=== PATIENT | male | born 1935 | race Caucasian/White ===

== ENCOUNTER 2020-04-06 02:00 | Observation (INO) | payer MEDICARE, BC ==
[2020-04-06] MEDS ORDERED: Sodium Chloride 0.9% 10 ML Syringe FLUSH PRN ×2 (02:30→03:09)
--- NOTE | 2020-04-06 02:58 | EDM.PDOC ---
ED HPI GENERAL MEDICAL PROBLEM - General Chief Complaint: General Stated Complaint: chest pain Time Seen by Provider: 04/06/20 02:30 Source of Information: Reports: Patient History Limitations: Reports: No Limitations - History of Present Illness INITIAL COMMENTS - FREE TEXT/NARRATIVE: Patient is an 85-year-old gentleman who presents to the emergency department this morning via EMS with a complaint of chest pain. Patient states that the discomfort began approximately 1800 yesterday, this occurred while he was driving his tractor. Rest of the evening He was relaxing at home area Pain has been constant and gradually worsening. Patient decided to call 911 at 130 this morning. In route, EMS gave one nitroglycerin, 4 baby aspirin, and 2 mg of morphine. Chest pain was said to have completely resolved prior to presentation in ER. Patient denies any trauma, fever, shortness of breath, nausea, vomiting, diarrhea, abdominal pain, out of country travel, recent upper respiratory symptoms, lower extremity edema, or similar symptoms previously Onset: Sudden Onset Date: 04/05/20 Onset Time: 18:00 Duration: Hour(s):, Constant Location: Reports: Chest Quality: Reports: Ache Severity: Mild Improves with: Reports: Medication Worsens with: Reports: None Context: Denies: Activity, Exercise, Lifting, Trauma Associated Symptoms: Reports: No Other Symptoms. 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 Right Middle Chest Pain Score (Numeric/FACES): 4 - Related Data Allergies Allergy/AdvReac Type Severity Reaction Status Date / Time No Known Drug Allergies Allergy none Verified 04/06/20 02:32 Home Meds: Home Meds Allopurinol [Zyloprim] 100 mg PO BID 06/24/16 [History] Omeprazole 20 mg PO DAILY PRN 06/24/16 [History] Aspirin [Halfprin] 81 mg PO DAILY tab.ec 06/27/16 [Rx] Sildenafil Citrate [Sildenafil] 20 mg PO ASDIRECTED PRN 09/15/16 [History] Past Medical History HEENT History: Reports: Allergic Rhinitis, Cataract, Impaired Vision Cardiovascular History: Reports: Heart Murmur, Hypertension Respiratory History: Reports: COPD, SOB Gastrointestinal History: Reports: GERD Genitourinary History: Reports: Other (See Below) Other Genitourinary History: ED Musculoskeletal History: Reports: Arthritis, Gout, Osteoarthritis Endocrine/Metabolic History: Reports: None - Infectious Disease History Infectious Disease History: Reports: Chicken Pox, Measles, Mumps - Past Surgical History HEENT Surgical History: Reports: None, Cataract Surgery Musculoskeletal Surgical History: Reports: Arthroscopic Knee, Knee Replacement, Shoulder Replacement, Shoulder Surgery Social & Family History - Family History Family Medical History: Noncontributory - Caffeine Use Caffeine Use: Reports: Coffee ED ROS GENERAL - Review of Systems Review Of Systems: Comprehensive ROS is negative, except as noted in HPI. Constitutional: Reports: No Symptoms HEENT: Reports: No Symptoms Respiratory: Reports: No Symptoms Cardiovascular: Reports: Chest Pain Endocrine: Reports: No Symptoms GI/Abdominal: Reports: No Symptoms : Reports: No Symptoms Musculoskeletal: Reports: No Symptoms Skin: Reports: No Symptoms Neurological: Reports: No Symptoms Psychiatric: Reports: No Symptoms Hematologic/Lymphatic: Reports: No Symptoms Immunologic: Reports: No Symptoms ED EXAM, GENERAL - Physical Exam Exam: See Below Exam Limited By: No Limitations General Appearance: Alert, WD/WN, No Apparent Distress Nose: Normal Inspection, Normal Mucosa, No Blood Throat/Mouth: Normal Inspection, Normal Oropharynx, No Airway Compromise Head: Atraumatic, Normocephalic Neck: Normal Inspection, Supple, Non-Tender, Full Range of Motion Respiratory/Chest: No Respiratory Distress, Lungs Clear, Normal Breath Sounds, No Accessory Muscle Use, Chest Non-Tender Cardiovascular: Regular Rate, Rhythm, Systolic Murmur GI/Abdominal: Normal Bowel Sounds, Soft, Non-Tender, No Organomegaly, No Distention, No Abnormal Bruit, No Mass Back Exam: Normal Inspection. No: CVA Tenderness (L), CVA Tenderness (R) Extremities: Normal Inspection, No Pedal Edema Neurological: Alert, Oriented, Normal Cognition Psychiatric: Normal Affect, Normal Mood Skin Exam: Warm, Dry, Intact, Normal Color, No Rash Lymphatic: No Adenopathy EKG INTERPRETATION EKG Date: 04/06/20 Time: 02:25 Rhythm: Other (Sinus rhythm with first-degree AV block) Rate (Beats/Min): 69 [place]: Normal P-Wave: Present QRS: Normal ST-T: Normal QT: Normal Comparison: No Change (From previous on 10/04/2019) Course - Vital Signs Last Recorded V/S: Last Vital Signs Temp 99.5 F 04/06/20 02:33 Pulse 72 04/06/20 02:33 Resp 21 H 04/06/20 02:33 BP 93/35 L 04/06/20 02:33 Pulse Ox 92 L 04/06/20 02:33 - Orders/Labs/Meds Orders: Active Orders 24 hr Category Date Time Status EKG Documentation Completion [RC] ASDIRECTED Care 04/06/20 02:28 Active Peripheral IV Care [RC] . DIRECTED Care 04/06/20 02:30 Ordered CXR [Chest 1V Frontal] [CR] Stat Exams 04/06/20 02:29 Ordered Sodium Chloride 0.9% [Saline Flush] Med 04/06/20 02:30 Ordered 10 ml FLUSH Q8HR PRN Peripheral IV Insertion Adult [OM.PC] Routine Oth 04/06/20 02:30 Ordered EKG 12 Lead [EK] Stat Ther 04/06/20 02:25 Ordered Medication Orders Sodium Chloride (Saline Flush) 10 ml FLUSH Q8HR PRN PRN Reason: keep vein open Labs: Laboratory Tests 04/06/20 04/06/20 Range/Units 01:30 01:30 WBC 16.31 H (5.00-10.00) 10^3/uL RBC 4.86 (4.50-6.00) 10^6/uL Hgb 14.5 (13.0-17.0) g/dL Hct 44.5 (40.0-52.0) % MCV 91.6 (82.0-92.0) fL MCH 29.8 (27.0-31.0) pg MCHC 32.6 (32.0-36.0) g/dL RDW 14.4 (11.5-14.5) % Plt Count 209 (150-400) 10^3/uL MPV 12.1 H (7.4-10.4) fL Immature Gran % (Auto) 0.2 (0.0-5.0) % Neut % (Auto) 86.1 H (50.0-70.0) % Lymph % (Auto) 4.5 L (20.0-40.0) % [place] % (Auto) 9.0 H (2.0-8.0) % Eos % (Auto) 0.0 L (1.0-3.0) % Baso % (Auto) 0.2 (0.0-1.0) % Neut # (Auto) 14.03 H (2.50-7.00) 10^3/uL Lymph # (Auto) 0.74 L (1.00-4.00) 10^3/uL [place] # (Auto) 1.47 H (0.10-0.80) 10^3/uL Eos # (Auto) 0.00 L (0.10-0.30) 10^3/uL Baso # (Auto) 0.03 (0.00-0.10) 10^3/uL Immature Gran # (Auto) 0.04 (0.00-0.50) 10^3/uL Sodium 136 (136-145) mmol/L Potassium 4.3 (3.3-5.3) mmol/L Chloride 99 (98-115) mmol/L Carbon Dioxide 26.2 (21.0-32.0) mmol/L Anion Gap 15.1 H (5-15) mmol/L BUN 15 (6-25) mg/dL Creatinine 0.87 (0.51-1.17) mg/dL Est Cr Clr Drug Dosing 68.14 mL/min Estimated GFR (MDRD) > 60 mL/min Glucose 163 H (75 - 99) mg/dL Calcium 8.9 (8.7-10.3) mg/dL Total Bilirubin 1.0 (0.2-1.0) mg/dL AST 20 (15-37) U/L ALT 22 (12-78) U/L Alkaline Phosphatase 76 (46-116) IU/L Troponin I 0.06 (0.00-0.070) ng/mL Total Protein 7.8 (6.4-8.2) g/dL Albumin 3.66 (3.00-4.80) g/dL Lipase 41 L (73-393) U/L Meds: Medications Generic Name Dose Route Start Last Admin Trade Name Freq PRN Reason Stop Dose Admin Sodium Chloride 10 ml 04/06/20 02:30 Saline Flush FLUSH Q8HR PRN keep vein open - Radiology Interpretation Free Text/Narrative:: Chest x-ray shows no acute cardiopulmonary process - Re-Assessments/Exams Free Text/Narrative Re-Assessment/Exam: 04/06/20 03:08 Patient afebrile, vital signs stable, nontoxic appearing, chest pain, resolved. Patient does have an elevated white count of 16. No source. Patient was given nitroglycerin on EMS transport that resolved symptoms. Patient will be admitted for observation to Dr. Hernandes's service Departure - Departure Time of Disposition: 03:12 Disposition: Refer to Observation Condition: Fair Clinical Impression: Chest pain Qualifiers: Chest pain type: unspecified Qualified Code(s): R07.9 - Chest pain, unspecified - Discharge Information Referrals: Erinn Fernandez PA-C [Primary Care Provider] - Forms: ED Department Discharge Sepsis Event Note - Evaluation Sepsis Screening Result: No Definite Risk - Focused Exam Vital Signs: Vital Signs Temp Pulse Resp BP Pulse Ox 04/06/20 02:33 99.5 F 72 21 H 93/35 L 92 L Date Exam was Performed: 04/06/20 Time Exam was Performed: 03:07 - My Orders Last 24 Hours: My Active Orders 04/06/20 02:25 EKG 12 Lead [EK] Stat 04/06/20 02:28 EKG Documentation Completion [RC] ASDIRECTED 04/06/20 02:29 CXR [Chest 1V Frontal] [CR] Stat 04/06/20 02:30 Peripheral IV Care [RC] . DIRECTED Sodium Chloride 0.9% [Saline Flush] 10 ml FLUSH Q8HR PRN Peripheral IV Insertion Adult [OM.PC] Routine - Assessment/Plan Admission H&P: Please use this note as an admission H&P Last 24 Hours: My Active Orders 04/06/20 02:25 EKG 12 Lead [EK] Stat 04/06/20 02:28 EKG Documentation Completion [RC] ASDIRECTED 04/06/20 02:29 CXR [Chest 1V Frontal] [CR] Stat 04/06/20 02:30 Peripheral IV Care [RC] . DIRECTED Sodium Chloride 0.9% [Saline Flush] 10 ml FLUSH Q8HR PRN Peripheral IV Insertion Adult [OM.PC] Routine Assessment:: Chest pain Plan: Admitted for observation
[2020-04-06] MEDS ORDERED: Lidocaine 2% 100 MG/5 ML Syringe IVPUSH PRN (03:00)
[2020-04-06] MEDS ORDERED: EPINEPHrine 1:10,000 1 MG/10 ML Syringe IVPUSH PRN (03:00)
[2020-04-06] MEDS ORDERED: Atropine 0.1 MG/ML 10 ML Syringe IVPUSH PRN (03:00)
[2020-04-06] MEDS ORDERED: Nitroglycerin 0.4 MG Tab.SL SL PRN (03:00)
[2020-04-06 03:04] LABS: ANION GAP 15.1 mmol/L (5-15); CHLORIDE,CL 99 mmol/L (98-115); SODIUM,NA 136 mmol/L (136-145)
[2020-04-06] MEDS ORDERED: Acetaminophen 325 MG Tab PO PRN (03:09)
--- NOTE | 2020-04-06 07:29 | CR ---
[id number] RAD/RAD Chest PA or AP 1V EXAM: SINGLE VIEW CHEST. INDICATION: CHEST PAIN COMPARISON: CORRELATION IS MADE WITH OCTOBER 04, 2019 FINDINGS: The lungs are clear The cardiomediastinal contour is stable IMPRESSION: NO PNEUMONIA OR EDEMA Rafael Noriega MD 04/06/20 0728 Thank you for allowing us to participate in the care of your patient.
[2020-04-06 09:27] LABS: ANION GAP 13.3 mmol/L (5-15); CHLORIDE,CL 101 mmol/L (98-115); SODIUM,NA 136 mmol/L (136-145)
[2020-04-06 10:53] VITALS: BP 100/52; PULSE 74
--- NOTE | 2020-04-09 20:17 | DISCH ---
DISCHARGE DIAGNOSIS: 1. Chest pain, myocardial infarction ruled out. He will need further workup. He will be scheduled for a gallbladder ultrasound on 04/11/2020, in this facility. He will follow up with me on 04/13/2020 in the clinic. He will need some cardiac testing including a stress test and further testing if indicated. I have communicated my findings with Dr. Janice Hernandes, who accepted the patient for admission. Should the patient have any further problems, he will call the clinic or hospital. 2. Gout, stable on allopurinol. 3. Gastroesophageal reflux disease, stable with omeprazole. 4. Erectile dysfunction. He does take sildenafil as needed. He is on daily aspirin regimen. HOSPITAL COURSE: This is an 85-year-old gentleman who presented to the emergency room early this morning via EMS with complaints of chest pain. The patient reports that his pain began at 6 p.m. the night before and it occurred while he was driving his tractor. The rest of the evening he was relaxing at home and the pain was constant and gradually worsened. The patient decided to call 911 at 1:30 in the morning. En route, EMS gave 1 nitroglycerin, 4 baby aspirins, and 2 mg of morphine. Chest pain was said to have completely resolved prior to the presentation to the emergency room. The patient has not had any recent trauma or injury to the chest. He was admitted to the hospital for observation. He did have a low-grade temp in the emergency room of 99.5. Blood pressure of 93/35. He did have a white count of 16,310. This has improved now this morning at 15.77. EKG was negative. Troponin initially was 0.06 at 4 a.m. At 12 noon, his troponin was less than 0.04. He had another troponin at 2 p.m. this afternoon, which was 0.06. The patient is pain free and anxious to go home. He did mention that the pain that he had last evening and some right-sided chest pain that he had this morning in the hospital occurred after he ate. His daughter is present at the bedside and questioning whether perhaps it could be his gallbladder. He will be scheduled for a gallbladder ultrasound as an outpatient. He may also need to have a stress test. He has had a recent cardiology consultation prior to a blepharoplasty that was performed in [place]. PHYSICAL EXAM ON DISCHARGE: VITAL SIGNS: He is afebrile, pulse is 72, respirations 21, blood pressure 100/48. Pulse oximeter 92% on room air. SKIN: Warm and dry to touch. CARDIAC: Reveals S1, S2 to be normal. Rate and rhythm are regular. No murmur, click, or gallop is auscultated. LUNGS: Clear. ABDOMEN: Soft, nontender. Bowel sounds present in all 4 quadrants. There is no pedal edema. /[id number]/MODL
== END 2020-04-06 16:00 | disposition home or self-care (01) ==
LOC: KA.ED 02:00 → KA.MS 03:09 → UNDOADMOB 03:59 → KA.MS 03:59
PROVIDERS: ADMIT Physician Assistant Surgical
DX: R07.9 Chest pain, unspecified (principal); I10 Essential (primary) hypertension; J44.9 Chronic obstructive pulmonary disease, unspecified; K21.9 Gastro-esophageal reflux disease without esophagitis; M10.9 Gout, unspecified; N52.9 Male erectile dysfunction, unspecified; Z79.82 Long term (current) use of aspirin; Z79.899 Other long term (current) drug therapy
CPT/HCPCS: 36415; 71045; 80053; 83690; 84484; 85025; 93005; A9270; 99285-25; G0378

== ENCOUNTER 2020-10-05 11:32 | Emergency (ER) | payer MEDICARE, BC ==
[2020-10-05] MEDS ORDERED: Sodium Chloride 0.9% 10 ML Syringe FLUSH PRN (11:39)
[2020-10-05] MEDS ORDERED: Sodium Chloride 0.9% 1,000 ML IV ONE (11:39)
--- NOTE | 2020-10-05 11:44 | EDM.PDOC ---
ED HPI GENERAL MEDICAL PROBLEM - General Chief Complaint: Respiratory Problem Stated Complaint: SOB Time Seen by Provider: 10/05/20 11:35 Source of Information: Reports: Patient, EMS History Limitations: Reports: No Limitations - History of Present Illness INITIAL COMMENTS - FREE TEXT/NARRATIVE: 85 YO WM PRESENTS TO ER COMPLAINING OF FLU-LIKE SYMPTOMS X 1 WEEK WITH WORSENING SHORTNESS OF BREATH X 1 DAY. PT WAS TESTED FOR COVID 2 DAYS AGO WITH UNKNOWN RESULTS. 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 PT WAS FOUND TODAY BY EMS WITH SAO2 IN THE 80'S AND GENERALIZED WEAKNESS AND FATIGUE. PT WAS PLACED ON SUPPLEMENTAL O2 AT 15L NONREBREATHER WITH SAO2 98% AND IMPROVED TACHYPNEA. PT REPORTS HE DOES NOT WANT TO BE INTUBATED IF IT BECOMES NECESSARY BUT WILL CONFIRM WITH FAMILY. PT WITH FEVER-101 AND GENERALIZED BODY ACHES. PT DENIES CHEST PAIN BUT STATES IT'S DIFFICULT TO TAKE A DEEP BREATH. 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 - Related Data Allergies Allergy/AdvReac Type Severity Reaction Status Date / Time No Known Drug Allergies Allergy none Verified 10/05/20 12:00 Home Meds: Home Meds Allopurinol [Zyloprim] 100 mg PO DAILY 06/24/16 [History] Acetaminophen [Tylenol] 650 mg PO Q4H PRN tablet 04/06/20 [Rx] Aspirin [Halfprin] 81 mg PO DAILY PRN 04/06/20 [History] Nitroglycerin [Nitrostat] 0.4 mg SL ASDIRECTED PRN #30 tab.sl 04/06/20 [Rx] Omeprazole Magnesium [Prilosec Otc] 20 mg PO DAILY 04/06/20 [History] Past Medical History HEENT History: Reports: Allergic Rhinitis, Cataract, Impaired Vision Cardiovascular History: Reports: Heart Murmur, Hypertension Respiratory History: Reports: COPD, SOB Gastrointestinal History: Reports: GERD Genitourinary History: Reports: Other (See Below) Other Genitourinary History: ED Musculoskeletal History: Reports: Arthritis, Gout, Osteoarthritis Endocrine/Metabolic History: Reports: None - Infectious Disease History Infectious Disease History: Reports: Chicken Pox, Measles, Mumps - Past Surgical History HEENT Surgical History: Reports: None, Cataract Surgery Musculoskeletal Surgical History: Reports: Arthroscopic Knee, Knee Replacement, Shoulder Replacement, Shoulder Surgery Social & Family History - Family History Family Medical History: No Pertinent Family History - Caffeine Use Caffeine Use: Reports: Coffee ED ROS GENERAL - Review of Systems Review Of Systems: See Below Constitutional: Reports: Fever, Chills, Malaise, Weakness, Fatigue HEENT: Reports: Rhinitis Respiratory: Reports: Shortness of Breath, Cough Cardiovascular: Reports: No Symptoms Endocrine: Reports: No Symptoms GI/Abdominal: Reports: No Symptoms : Reports: No Symptoms Musculoskeletal: Reports: Muscle Pain Skin: Reports: No Symptoms Neurological: Reports: No Symptoms Psychiatric: Reports: No Symptoms Hematologic/Lymphatic: Reports: No Symptoms Immunologic: Reports: No Symptoms ED EXAM, GENERAL - Physical Exam Exam: See Below Exam Limited By: No Limitations General Appearance: Alert, WD/WN, No Apparent Distress Throat/Mouth: Normal Inspection, Normal Lips, Normal Teeth, Normal Gums, Normal Oropharynx, Normal Voice, No Airway Compromise Head: Atraumatic, Normocephalic Neck: Normal Inspection, Supple, Non-Tender, Full Range of Motion Respiratory/Chest: Chest Non-Tender, Decreased Breath Sounds, Rhonchi, Accessory Muscle Use, Splinting Cardiovascular: Normal Peripheral Pulses, No Edema, No Gallop, No JVD, No Murmur, No Rub, Tachycardia, Irregularly Irregular GI/Abdominal: Normal Bowel Sounds, Soft, Non-Tender, No Organomegaly, No Distention, No Abnormal Bruit, No Mass Back Exam: Normal Inspection, Full Range of Motion, NT Extremities: Normal Inspection, Normal Range of Motion, Non-Tender, Normal Capillary Refill, No Pedal Edema Neurological: Alert, Oriented, CN II-XII Intact, Normal Cognition, No Motor/Sensory Deficits Psychiatric: Normal Affect, Normal Mood Skin Exam: Warm, Dry, Intact, Normal Color, No Rash Lymphatic: No Adenopathy Course - Vital Signs Last Recorded V/S: Last Vital Signs Temp 38.2 C H 10/05/20 13:10 Pulse 121 H 10/05/20 13:10 Resp 40 H 10/05/20 13:10 BP 107/71 10/05/20 13:10 Pulse Ox 94 L 10/05/20 13:10 - Orders/Labs/Meds Orders: Active Orders 24 hr Category Date Time Status Blood Pressure Mgt: Sepsis [RC] Q15MX2 Care 10/05/20 11:40 Active EKG Documentation Completion [RC] ASDIRECTED Care 10/05/20 11:40 Active CULTURE BLOOD [BC] Stat Lab 10/05/20 12:00 Received CULTURE BLOOD [BC] Stat Lab 10/05/20 12:45 Received LACTIC ACID [CHEM] Routine Lab 10/05/20 14:33 Ordered UA W/MICROSCOPIC [URIN] Stat Lab 10/05/20 11:40 Ordered Heparin Sodium/D5W 250 ml Med 10/05/20 13:45 Active IV TITRATE Sodium Chloride 0.9% [Normal Saline] 1,000 ml Med 10/05/20 13:30 Active IV ASDIRECTED Sodium Chloride 0.9% [Saline Flush] Med 10/05/20 11:39 Active 10 ml FLUSH Q8HR PRN Blood Culture x2 Reflex Set [OM.PC] Stat Oth 10/05/20 11:40 Ordered Saline Lock Insert [OM.PC] Stat Oth 10/05/20 11:40 Ordered Severe Sepsis Onset Time [OM.PC] Stat Oth 10/05/20 11:40 Ordered EKG 12 Lead [EK] Stat Ther 10/05/20 11:39 Ordered Medication Orders Sodium Chloride (Normal Saline) 1,000 mls @ 150 mls/hr IV ASDIRECTED CARTER Heparin Sodium/Dextrose () 250 mls @ 10.886 mls/hr IV TITRATE CARTRE; Protocol Last Admin: 10/05/20 13:59 Dose: 12 units/kg/hr, 10.886 mls/hr Documented by: SAYRA Cosigned by: CASIMIRO Sodium Chloride (Saline Flush) 10 ml FLUSH Q8HR PRN PRN Reason: keep vein open Labs: Laboratory Tests 10/05/20 10/05/20 10/05/20 Range/Units 12:00 12:00 12:00 WBC 19.60 H (5.00-10.00) 10^3/uL RBC 4.87 (4.50-6.00) 10^6/uL Hgb 14.5 (13.0-17.0) g/dL Hct 44.8 (40.0-52.0) % MCV 92.0 (82.0-92.0) fL MCH 29.8 (27.0-31.0) pg MCHC 32.4 (32.0-36.0) g/dL RDW 14.6 H (11.5-14.5) % Plt Count 184 (150-400) 10^3/uL MPV 13.0 H (7.4-10.4) fL Immature Gran % (Auto) 0.4 (0.0-5.0) % Neut % (Auto) 92.5 H (50.0-70.0) % Lymph % (Auto) 2.4 L (20.0-40.0) % [place] % (Auto) 4.3 (2.0-8.0) % Eos % (Auto) 0.0 L (1.0-3.0) % Baso % (Auto) 0.4 (0.0-1.0) % Neut # (Auto) 18.13 H (2.50-7.00) 10^3/uL Lymph # (Auto) 0.48 L (1.00-4.00) 10^3/uL [place] # (Auto) 0.85 H (0.10-0.80) 10^3/uL Eos # (Auto) 0.00 L (0.10-0.30) 10^3/uL Baso # (Auto) 0.07 (0.00-0.10) 10^3/uL Immature Gran # (Auto) 0.07 (0.00-0.50) 10^3/uL PT 13.5 H (9.2-11.2) SEC INR 1.3 H (0.9-1.1) APTT 32.7 H (22.8-31.4) SEC Sodium 137 (136-145) mmol/L Potassium 4.4 (3.3-5.3) mmol/L Chloride 100 (98-115) mmol/L Carbon Dioxide 23.1 (21.0-32.0) mmol/L Anion Gap 18.3 H (5-15) mmol/L BUN 62 H* D (6-25) mg/dL Creatinine 2.23 H D (0.51-1.17) mg/dL Est Cr Clr Drug Dosing 26.58 mL/min Estimated GFR (MDRD) 28 mL/min Glucose 139 H (75 - 99) mg/dL Lactic Acid (0.4-2.0) mmol/L Calcium 9.0 (8.7-10.3) mg/dL Total Bilirubin 0.8 (0.2-1.0) mg/dL AST 412 H (15-37) U/L ALT 392 H (12-78) U/L Alkaline Phosphatase 63 (46-116) IU/L Troponin I 6.64 H* (0.00-0.070) ng/mL Total Protein 8.0 (6.4-8.2) g/dL Albumin 3.02 (3.00-4.80) g/dL SARS CoV-2 RNA Rapid ABA (NEGATIVE) 10/05/20 10/05/20 Range/Units 12:00 12:05 WBC (5.00-10.00) 10^3/uL RBC (4.50-6.00) 10^6/uL Hgb (13.0-17.0) g/dL Hct (40.0-52.0) % MCV (82.0-92.0) fL MCH (27.0-31.0) pg MCHC (32.0-36.0) g/dL RDW (11.5-14.5) % Plt Count (150-400) 10^3/uL MPV (7.4-10.4) fL Immature Gran % (Auto) (0.0-5.0) % Neut % (Auto) (50.0-70.0) % Lymph % (Auto) (20.0-40.0) % [place] % (Auto) (2.0-8.0) % Eos % (Auto) (1.0-3.0) % Baso % (Auto) (0.0-1.0) % Neut # (Auto) (2.50-7.00) 10^3/uL Lymph # (Auto) (1.00-4.00) 10^3/uL [place] # (Auto) (0.10-0.80) 10^3/uL Eos # (Auto) (0.10-0.30) 10^3/uL Baso # (Auto) (0.00-0.10) 10^3/uL Immature Gran # (Auto) (0.00-0.50) 10^3/uL PT (9.2-11.2) SEC INR (0.9-1.1) APTT (22.8-31.4) SEC Sodium (136-145) mmol/L Potassium (3.3-5.3) mmol/L Chloride (98-115) mmol/L Carbon Dioxide (21.0-32.0) mmol/L Anion Gap (5-15) mmol/L BUN (6-25) mg/dL Creatinine (0.51-1.17) mg/dL Est Cr Clr Drug Dosing mL/min Estimated GFR (MDRD) mL/min Glucose (75 - 99) mg/dL Lactic Acid 4.7 H (0.4-2.0) mmol/L Calcium (8.7-10.3) mg/dL Total Bilirubin (0.2-1.0) mg/dL AST (15-37) U/L ALT (12-78) U/L Alkaline Phosphatase (46-116) IU/L Troponin I (0.00-0.070) ng/mL Total Protein (6.4-8.2) g/dL Albumin (3.00-4.80) g/dL SARS CoV-2 RNA Rapid ABA Positive H (NEGATIVE) Meds: Medications Generic Name Dose Route Start Last Admin Trade Name Freq PRN Reason Stop Dose Admin Sodium Chloride 1,000 mls @ 150 mls/hr 10/05/20 13:30 Normal Saline IV ASDIRECTED CARTER Heparin Sodium/Dextrose 250 mls @ 10.886 mls/hr 10/05/20 13:45 10/05/20 13:59 IV 12 units/kg/hr TITRATE CARTER 10.886 mls/hr Administration Protocol 12 UNITS/KG/HR Sodium Chloride 10 ml 10/05/20 11:39 Saline Flush FLUSH Q8HR PRN keep vein open Discontinued Medications Generic Name Dose Route Start Last Admin Trade Name Freq PRN Reason Stop Dose Admin Acetaminophen 1,000 mg 10/05/20 12:04 10/05/20 12:58 Tylenol Extra Strength PO 10/05/20 12:05 1,000 mg ONETIME ONE Administration Dexamethasone 6 mg 10/05/20 13:25 10/05/20 13:56 Decadron IVPUSH 10/05/20 13:26 6 mg ONETIME ONE Administration Heparin Sodium (Porcine) 4,000 units 10/05/20 13:44 10/05/20 13:57 Heparin Sodium IVPUSH 10/05/20 13:45 4,000 units ONETIME ONE Administration Sodium Chloride 1,000 mls @ 1,000 mls/hr 10/05/20 11:39 10/05/20 11:40 Normal Saline IV 10/05/20 12:38 1,000 mls/hr BOLUS ONE Administration Protocol Vancomycin HCl 1 gm/ Sodium 250 mls @ 167 mls/hr 10/05/20 12:40 10/05/20 13:31 Chloride IV 10/05/20 14:09 167 mls/hr ONETIME ONE Administration Piperacillin/Tazobactam/ 50 mls @ 100 mls/hr 10/05/20 12:40 10/05/20 13:00 Dextrose 3.375 gm/ Premix IV 10/05/20 13:09 100 mls/hr ONETIME ONE Administration Remdesivir 200 mg/ Sodium 250 mls @ 250 mls/hr 10/05/20 13:46 Chloride IV 10/05/20 13:47 ONETIME ONE - Radiology Interpretation Free Text/Narrative:: CXR- PATCHY PULMONARY INFILTRATES RIGHT > LEFT Departure - Departure Time of Disposition: 14:34 Disposition: DC/Tfer to Acute Hospital 02 Condition: Critical Clinical Impression: Pneumonia due to COVID-19 virus, Renal insufficiency, Non-STEMI (non-ST elevated myocardial infarction) Atrial fibrillation Qualifiers: Atrial fibrillation type: longstanding persistent Qualified Code(s): I48.11 - Longstanding persistent atrial fibrillation - Discharge Information Referrals: Erinn Fernandez PA-C [Primary Care Provider] - Forms: ED Department Discharge, Interfacility Transfer [facility] Sepsis Event Note (ED) - Focused Exam Vital Signs: Vital Signs Temp Temp Pulse Resp BP Pulse Ox 10/05/20 13:10 38.2 C H 121 H 40 H 107/71 94 L 10/05/20 12:58 37.9 C 10/05/20 12:45 121 H 40 H 100/63 93 L 10/05/20 12:20 118 H 40 H 98/55 L 94 L 10/05/20 12:05 116 H 38 H 129/66 93 L 10/05/20 11:45 37.9 C 122 H 40 H 97/44 L 96 - My Orders Last 24 Hours: My Active Orders 10/05/20 11:39 Sodium Chloride 0.9% [Saline Flush] 10 ml FLUSH Q8HR PRN EKG 12 Lead [EK] Stat 10/05/20 11:40 Blood Pressure Mgt: Sepsis [RC] Q15MX2 EKG Documentation Completion [RC] ASDIRECTED UA W/MICROSCOPIC [URIN] Stat Blood Culture x2 Reflex Set [OM.PC] Stat Saline Lock Insert [OM.PC] Stat Severe Sepsis Onset Time [OM.PC] Stat 10/05/20 12:00 CULTURE BLOOD [BC] Stat 10/05/20 12:45 CULTURE BLOOD [BC] Stat 10/05/20 13:30 Sodium Chloride 0.9% [Normal Saline] 1,000 ml IV ASDIRECTED 10/05/20 13:45 Heparin Sodium/D5W 250 ml IV TITRATE 10/05/20 14:33 LACTIC ACID [CHEM] Routine - Assessment/Plan Last 24 Hours: My Active Orders 10/05/20 11:39 Sodium Chloride 0.9% [Saline Flush] 10 ml FLUSH Q8HR PRN EKG 12 Lead [EK] Stat 10/05/20 11:40 Blood Pressure Mgt: Sepsis [RC] Q15MX2 EKG Documentation Completion [RC] ASDIRECTED UA W/MICROSCOPIC [URIN] Stat Blood Culture x2 Reflex Set [OM.PC] Stat Saline Lock Insert [OM.PC] Stat Severe Sepsis Onset Time [OM.PC] Stat 10/05/20 12:00 CULTURE BLOOD [BC] Stat 10/05/20 12:45 CULTURE BLOOD [BC] Stat 10/05/20 13:30 Sodium Chloride 0.9% [Normal Saline] 1,000 ml IV ASDIRECTED 10/05/20 13:45 Heparin Sodium/D5W 250 ml IV TITRATE 10/05/20 14:33 LACTIC ACID [CHEM] Routine Assessment:: 1. COVID PNEUMONIA-HYPOXIA 2. NONSTEMI 3. NEW ONSET AFIB 4. ACUTE RENAL FAILURE Plan: 1. TRANSFER TO [facility]- [facility] HANSON ACCEPTING 2. HEPARIN GTT WITH BOLUS 3. REMDESIVIR 200MG IV NOW 4. DECADRON 6MG IV NOW 5. CONSIDER BIPAP IF BREATHING WORSENS 6. DNR/DNI PER PATIENT AND SON 7. SUPPORTIVE CARE
[2020-10-05] MEDS ORDERED: Acetaminophen 500 MG Tab PO ONE (12:04)
--- NOTE | 2020-10-05 12:16 | CR ---
[id number] RAD/RAD Chest PA or AP 1V EXAM: RAD Chest PA or AP 1V INDICATION: SHORTNESS OF BREATH. COMPARISON: April 06, 2020 DISCUSSION: Cardiomediastinal silhouette is stable in size and contour. Patchy pulmonary infiltrates bilaterally, right greater than left. No pneumothorax or pleural effusion. IMPRESSION: Patchy pulmonary infiltrates bilaterally, right greater than left. Findings are likely infectious/inflammatory nature as can be seen with viral pneumonia. Darshan Miles DO 10/05/20 [id number] Thank you for allowing us to participate in the care of your patient.
[2020-10-05] MEDS ORDERED: Piperacillin/Tazobactam/Dext 3.375 GM in Premix Bag 1 BAG IV ONE (12:40)
[2020-10-05 13:20] LABS: PTT,PARTIAL THROMBOPLSTIN TIME 32.7 SEC (22.8-31.4)
[2020-10-05] MEDS ORDERED: Dexamethasone 4 MG/ML SDV IVPUSH ONE (13:25)
[2020-10-05] MEDS ORDERED: Sodium Chloride 0.9% 1,000 ML IV SCH (13:30)
[2020-10-05 13:35] LABS: ANION GAP 18.3 mmol/L (5-15)
[2020-10-05] MEDS ORDERED: Heparin Sodium 5,000 Units/ML Vial IVPUSH ONE (13:44)
[2020-10-05] MEDS ORDERED: Heparin Sodium/D5W 250 ML IV SCH (13:45)
[2020-10-05] MEDS ORDERED: REMDESIVIR 200 MG in Sodium Chloride 0.9% 250 ML IV ONE (13:46)
[2020-10-05 14:47] VITALS: BP 100/68; PULSE 103
== END 2020-10-05 15:10 ==
LOC: KA.ED 11:32
DX: U07.1 COVID-19 (principal); J12.89 Other viral pneumonia; I21.4 Non-ST elevation (NSTEMI) myocardial infarction; I48.11 Longstanding persistent atrial fibrillation; N28.9 Disorder of kidney and ureter, unspecified; I10 Essential (primary) hypertension; J44.9 Chronic obstructive pulmonary disease, unspecified; K21.9 Gastro-esophageal reflux disease without esophagitis; M10.9 Gout, unspecified; Z79.82 Long term (current) use of aspirin; Z79.899 Other long term (current) drug therapy
CPT/HCPCS: 36415; 71045; 80053; 81001; 83605; 84484; 85025; 85610; 85730; 87040; 93005; 96365; 96367; 96368; 96375; 99284; 99285-25; A9270-GY; J1100; J1644; J2543; J3370; J7030; J7050; U0002